=== PATIENT | male | born 1960 | race African-American/Black ===

== ENCOUNTER 2016-12-27 15:58 | Emergency (ER) | payer OTHER ==
[~2016-12-27] VITALS: Ht 193 cm; Wt 134.5 kg
[2016-12-27 16:15] VITALS: BP 134/96
[2016-12-27] MEDS ORDERED: PERTUSS(ACELL),DIPH,TET VAC/PF 0.5 ML VIAL IM ONE (18:30)
[2016-12-27] MEDS ORDERED: SODIUM CHLORIDE 0.9% 250 ML IRRIG SOLUTION BOTTLE IRRIG ONE (18:30)
== END 2016-12-27 19:14 | disposition home or self-care (01) ==
LOC: EMS 15:59
DX: S91.331A Puncture wound without foreign body, right foot, initial encounter (principal); Z88.5 Allergy status to narcotic agent; W22.8XXA Striking against or struck by other objects, initial encounter; Y93.01 Activity, walking, marching and hiking; Y92.89 Other specified places as the place of occurrence of the external cause; Y99.8 Other external cause status
CPT/HCPCS: 90471; 90715; 96372; 99284; J0690

== ENCOUNTER 2017-05-07 06:36 | Emergency (ER) | payer MEDICAID, OTHER ==
[~2017-05-07] VITALS: Ht 193 cm; Wt 154.6 kg
[2017-05-07 07:15] VITALS: BP 131/91
[2017-05-07] MEDS ORDERED: IBUPROFEN 600 MG TABLET PO ONE (07:15)
== END 2017-05-07 08:22 | disposition home or self-care (01) ==
LOC: EMS 06:39
DX: M17.11 Unilateral primary osteoarthritis, right knee (principal); Z88.5 Allergy status to narcotic agent
CPT/HCPCS: 99284